=== PATIENT | male | born 1940 | race Caucasian/White ===

== ENCOUNTER → 2016-08-22 | Outpatient (CLI) | payer OTHER | END | disposition home or self-care (01) | DX: R13.13 Dysphagia, pharyngeal phase (principal); K21.9 Gastro-esophageal reflux disease without esophagitis; Z86.010 Personal history of colon polyps | CPT/HCPCS: 92611 GN; G8996 GN; G8997 GN; G8998 GN ==

== ENCOUNTER 2017-06-27 11:19 | Inpatient (IN) | payer OTHER ==
[~2017-06-27] VITALS: Ht 170.2 cm; Wt 78.0 kg
[2017-06-27 15:18] VITALS: BP 123/64
[2017-06-27] MEDS ORDERED: PAIN RELIE500 MG/15 PO (16:04)
[2017-06-27] MEDS ORDERED: ANCEF,KEFZOL1 GM IV (16:05)
[2017-06-27] MEDS ORDERED: FLEXERIL5 MG PO (16:06)
[2017-06-27] MEDS ORDERED: CLONAZEPAM2 MG PO (16:07)
[2017-06-27] MEDS ORDERED: COLACE100 MG PO (16:09)
[2017-06-27] MEDS ORDERED: EPOGEN,PRO2000 UNITS IV (16:11)
[2017-06-27] MEDS ORDERED: PROSCAR5 MG PO (16:12)
[2017-06-27] MEDS ORDERED: FOLIC ACID5 MG/1 ML IV (16:13)
[2017-06-27] MEDS ORDERED: HEPARIN SO5000 UNIT4 SC (16:14)
[2017-06-27] MEDS ORDERED: MULTI-VITAMIN1 EAC4 PO (16:17)
[2017-06-27 23:38] VITALS: BP 118/64
[2017-06-28 06:34] VITALS: BP 105/56
[2017-06-28 07:09] LABS: HEMATOCRIT 24.6 % (38.0-50.0); HEMOGLOBIN 7.5 G/DL (12.5-16.6); MCH 32.8 PG (29.0-34.0); MCHC 30.5 G/DL (30.0-36.0); MCV 107.4 FL (86-99); NRBC (%) 2.7 /100 WBC (0-0); PLATELET COUNT 202 K/uL (156-360); RBC DIS.WIDTH-CV 21.1 % (11.8-14.6); RBC DIS.WIDTH-SD 56.8 % (39-53); RED BLOOD COUNT 2.29 M/uL (4.00-5.50); WHITE BLOOD COUNT 8.1 K/uL (4.1-10.2)
[2017-06-28 07:32] LABS: ALBUMIN 2.9 G/DL (3.2-4.8); ALKALINE PHOSPHATASE 57 IU/L (3-129); ALT (GPT) 44 IU/L (3-49); AST (GOT) 71 IU/L (2-34); CHLORIDE 106 MEQ/L (99-109); CREATININE 0.7 MG/DL (0.6-1.3); GFR ESTIMATE (CALCULATED) > 59 mL/min/ (58.99-99999); GLUCOSE 97 mg/dL (70-99); POTASSIUM 3.5 MEQ/L (3.7-5.4); SODIUM 140 MEQ/L (136-147); TOTAL BILIRUBIN 0.4 MG/DL (0.0-1.0); TOTAL PROTEIN 4.6 G/DL (6.4-8.3); UREA NITROGEN (BUN) 13 mg/dL (9-23)
[2017-06-28 09:58] LABS: RETIC HGB EQUIVALENT 35.2 (28-36); RETICULOCYTE COUNT 11.4 % (0.5-1.8)
[2017-06-28 16:17] VITALS: BP 105/58
[2017-06-29 05:45] VITALS: BP 120/66
[2017-06-29 15:43] VITALS: BP 107/64
[2017-06-30 04:45] VITALS: BP 111/64
[2017-06-30 07:02] LABS: CHLORIDE 106 MEQ/L (99-109); CREATININE 0.7 MG/DL (0.6-1.3); GFR ESTIMATE (CALCULATED) > 59 mL/min/ (58.99-99999); GLUCOSE 97 mg/dL (70-99); POTASSIUM 3.8 MEQ/L (3.7-5.4); SODIUM 140 MEQ/L (136-147); UREA NITROGEN (BUN) 9 mg/dL (9-23)
[2017-06-30 07:22] LABS: HEMATOCRIT 26.9 % (38.0-50.0); HEMOGLOBIN 8.3 G/DL (12.5-16.6); MCH 32.8 PG (29.0-34.0); MCHC 30.9 G/DL (30.0-36.0); MCV 106.3 FL (86-99); NRBC (%) 1.5 /100 WBC (0-0); PLATELET COUNT 250 K/uL (156-360); RBC DIS.WIDTH-CV 22.8 % (11.8-14.6); RBC DIS.WIDTH-SD 79.2 % (39-53); RED BLOOD COUNT 2.53 M/uL (4.00-5.50); WHITE BLOOD COUNT 7.2 K/uL (4.1-10.2)
[2017-06-30 07:36] LABS: IMM.RETIC FRACTION 29.6 % (3-19); RETIC HGB EQUIVALENT 29.4 (28-36)
[2017-06-30 07:38] LABS: BASOPHIL (%) 0.3 % (0-1); EOSINOPHIL (%) 1.7 % (0-5); EOSINOPHIL COUNT 0.1 K/uL (0-0.3); IMMATURE GRANULOCYTE (%) 1.3 % (0.0-0.7); LYMPHOCYTE (%) 29.2 % (15-42); LYMPHOCYTE COUNT 2.1 K/uL (1.0-2.8); MONOCYTE (%) 5.6 % (3-12); MONOCYTE COUNT 0.4 K/uL (0-0.8); NEUTROPHIL (%) 61.9 % (45-76); NEUTROPHIL COUNT 4.5 K/uL (1.8-6.4)
[2017-06-30 07:46] LABS: RETICULOCYTE COUNT 13.5 % (0.5-1.8)
[2017-07-01 06:30] VITALS: BP 120/61
[2017-07-01 15:22] VITALS: BP 109/62
[2017-07-02 06:15] VITALS: BP 106/70
[2017-07-02 13:30] VITALS: BP 123/82
[2017-07-02 15:44] VITALS: BP 112/71
[2017-07-03 05:51] VITALS: BP 119/69
[2017-07-03 15:49] VITALS: BP 103/61
[2017-07-04 05:11] LABS: HEMATOCRIT 32.9 % (38.0-50.0); HEMOGLOBIN 9.8 G/DL (12.5-16.6); MCH 31.8 PG (29.0-34.0); MCHC 29.8 G/DL (30.0-36.0); MCV 106.8 FL (86-99); NRBC (%) 0.3 /100 WBC (0-0); PLATELET COUNT 311 K/uL (156-360); RBC DIS.WIDTH-CV 21.4 % (11.8-14.6); WHITE BLOOD COUNT 6.1 K/uL (4.1-10.2)
[2017-07-04 05:15] LABS: RED BLOOD COUNT 3.08 M/uL (4.00-5.50)
[2017-07-04 05:38] LABS: CHLORIDE 103 MEQ/L (99-109); CREATININE 0.9 MG/DL (0.6-1.3); GFR ESTIMATE (CALCULATED) > 59 mL/min/ (58.99-99999); GLUCOSE 99 mg/dL (70-99); SODIUM 138 MEQ/L (136-147); UREA NITROGEN (BUN) 11 mg/dL (9-23)
[2017-07-04 05:40] LABS: POTASSIUM 5.3 MEQ/L (3.7-5.4)
[2017-07-04 05:42] LABS: BASOPHIL (%) 0.5 % (0-1); EOSINOPHIL (%) 2.6 % (0-5); EOSINOPHIL COUNT 0.2 K/uL (0-0.3); IMM.RETIC FRACTION 20.2 % (3-19); IMMATURE GRANULOCYTE (%) 0.5 % (0.0-0.7); LYMPHOCYTE (%) 30.8 % (15-42); LYMPHOCYTE COUNT 1.9 K/uL (1.0-2.8); MONOCYTE (%) 6.5 % (3-12); MONOCYTE COUNT 0.4 K/uL (0-0.8); NEUTROPHIL (%) 59.1 % (45-76); NEUTROPHIL COUNT 3.6 K/uL (1.8-6.4); PLAT.SUFFICIENCY ADEQUATE; RETIC HGB EQUIVALENT 27.7 (28-36)
[2017-07-04 06:01] VITALS: BP 101/65
[2017-07-04 15:31] VITALS: BP 101/54
[2017-07-05 05:27] VITALS: BP 109/64
[2017-07-05 15:14] VITALS: BP 123/54
[2017-07-06 05:14] VITALS: BP 110/61
[2017-07-06 15:01] VITALS: BP 123/72
[2017-07-07 04:26] VITALS: BP 116/70
[2017-07-07 15:06] LABS: BASOPHIL (%) 0.8 % (0-1); EOSINOPHIL (%) 1.6 % (0-5); EOSINOPHIL COUNT 0.1 K/uL (0-0.3); HEMATOCRIT 39.6 % (38.0-50.0); IMMATURE GRANULOCYTE (%) 0.4 % (0.0-0.7); LYMPHOCYTE (%) 31.5 % (15-42); LYMPHOCYTE COUNT 1.6 K/uL (1.0-2.8); MCH 31.4 PG (29.0-34.0); MCHC 29.8 G/DL (30.0-36.0); MCV 105.3 FL (86-99); MONOCYTE (%) 6.9 % (3-12); MONOCYTE COUNT 0.4 K/uL (0-0.8); NEUTROPHIL (%) 58.8 % (45-76); PLATELET COUNT 399 K/uL (156-360); RBC DIS.WIDTH-CV 19.6 % (11.8-14.6); RBC DIS.WIDTH-SD 73.8 % (39-53); WHITE BLOOD COUNT 5.1 K/uL (4.1-10.2)
[2017-07-07 15:07] LABS: HEMOGLOBIN 11.8 G/DL (12.5-16.6); RED BLOOD COUNT 3.76 M/uL (4.00-5.50)
[2017-07-07 15:20] LABS: ALBUMIN 3.9 G/DL (3.2-4.8); ALKALINE PHOSPHATASE 110 IU/L (3-129); ALT (GPT) 17 IU/L (3-49); AST (GOT) 20 IU/L (2-34); CHLORIDE 102 MEQ/L (99-109); CREATININE 0.9 MG/DL (0.6-1.3); GFR ESTIMATE (CALCULATED) > 59 mL/min/ (58.99-99999); GLUCOSE 111 mg/dL (70-99); SODIUM 137 MEQ/L (136-147); TOTAL BILIRUBIN 0.3 MG/DL (0.0-1.0); TOTAL PROTEIN 6.9 G/DL (6.4-8.3); UREA NITROGEN (BUN) 16 mg/dL (9-23)
[2017-07-07 15:22] LABS: POTASSIUM 4.2 MEQ/L (3.7-5.4)
[2017-07-07 15:47] VITALS: BP 110/68
[2017-07-08 05:57] VITALS: BP 98/57
[2017-07-09 04:31] VITALS: BP 112/65
[2017-07-09] MEDS ORDERED: ZOLOFT100 MG PO (13:25)
[2017-07-09] MEDS ORDERED: CRESTOR5 MG PO (13:26)
[2017-07-09] MEDS ORDERED: CO Q-10100 MG PO (13:28)
[2017-07-09] MEDS ORDERED: LECITHIN1200 M1 PO (13:29)
[2017-07-09] MEDS ORDERED: K2 PLUS D3 TAB1 EACH PO (13:31)
[2017-07-09] MEDS ORDERED: ADULT ASPIRIN R81 MG PO (13:31)
[2017-07-09 16:45] VITALS: BP 114/63
[2017-07-10 05:32] VITALS: BP 104/55
[2017-07-10] MEDS ORDERED: FLEXERIL5 MG PO (12:51)
[2017-07-10] MEDS ORDERED: SENNA PLUS TAB1 EACH PO (12:51)
[2017-07-10] MEDS ORDERED: OMEPRAZOLE40 M1 PO (12:51)
== END 2017-07-10 14:30 | disposition home health service (06) | DRG 560 ==
LOC: 3WEST 11:19 → ENPENDDIS 07-10 → 3WEST 07-10 14:30
PROVIDERS: Internal Medicine; Internal Medicine Medical Oncology; Physical Medicine & Rehabilitation Pain Medicine
PROC: F07M0ZZ Range of Motion and Joint Mobility Treatment of Musculoskeletal System - Whole Body (ICD-10-PCS; principal; 2017-06-27)
DX: Z47.89 Encounter for other orthopedic aftercare (principal); Z98.1 Arthrodesis status; R26.9 Unspecified abnormalities of gait and mobility; E83.51 Hypocalcemia; E87.1 Hypo-osmolality and hyponatremia; E88.09 Other disorders of plasma-protein metabolism, not elsewhere classified; E77.8 Other disorders of glycoprotein metabolism; R41.89 Other symptoms and signs involving cognitive functions and awareness; R20.0 Anesthesia of skin; D62 Acute posthemorrhagic anemia; E87.6 Hypokalemia; G89.18 Other acute postprocedural pain; J44.9 Chronic obstructive pulmonary disease, unspecified; E78.5 Hyperlipidemia, unspecified; I25.10 Atherosclerotic heart disease of native coronary artery without angina pectoris; K21.9 Gastro-esophageal reflux disease without esophagitis; K22.719 Barrett's esophagus with dysplasia, unspecified; F32.9 Major depressive disorder, single episode, unspecified; G47.00 Insomnia, unspecified; N40.0 Benign prostatic hyperplasia without lower urinary tract symptoms; Z91.81 History of falling; I25.2 Old myocardial infarction; Z95.5 Presence of coronary angioplasty implant and graft; Z87.01 Personal history of pneumonia (recurrent); Z86.19 Personal history of other infectious and parasitic diseases
CPT/HCPCS: 72070; 72100; 72157; 72158; 74230; 80048; 80053; 82607; 82948; 85025; 85027; 85046; 92526 GN; 92611 GN; 94799; 97110 GO; 97530 GP; 99202; J0881; J1644

== ENCOUNTER 2017-09-06 17:09 | Emergency (ER) | payer OTHER ==
[~2017-09-06] VITALS: Ht 167.6 cm; Wt 77.2 kg
[~2017-09-06 17:09] MED LIST: ADULT ASPIRIN R81 MG PO; ANCEF,KEFZOL1 GM IV; CLONAZEPAM2 MG PO; CO Q-10100 MG PO; COLACE100 MG PO; CRESTOR5 MG PO; EPOGEN,PRO2000 UNITS IV; FLEXERIL5 MG PO; FOLIC ACID5 MG/1 ML IV; HEPARIN SO5000 UNIT4 SC; K2 PLUS D3 TAB1 EACH PO; LECITHIN1200 M1 PO; MULTI-VITAMIN1 EAC4 PO; OMEPRAZOLE40 M1 PO; PAIN RELIE500 MG/15 PO; PROSCAR5 MG PO; SENNA PLUS TAB1 EACH PO; ZOLOFT100 MG PO
[2017-09-06 17:22] VITALS: BP 123/78
== END 2017-09-06 19:07 | disposition left against medical advice (07) ==
LOC: EME 17:09
DX: M54.5 Low back pain (principal); Z91.81 History of falling; Z98.890 Other specified postprocedural states; Z53.21 Procedure and treatment not carried out due to patient leaving prior to being seen by health care provider